=== PATIENT | female | born 1975 | race Hispanic/Latino ===

== ENCOUNTER 2024-08-24 17:26 | Emergency (ER) | payer OTHER ==
[~2024-08-24] VITALS: Ht 172.7 cm; Wt 86.2 kg
[2024-08-24 17:47] VITALS: RESP 18; TEMP 98.4
[2024-08-24 18:23] VITALS: PULSE 79
[2024-08-24] MEDS ORDERED: AMOX TR-K CLV1 EAC2 PO (18:36)
[2024-08-24] MEDS: TETANUS/DIPHTHERIA TOX ADULT 0.5 ML SYR IM ONE (18:51)
[2024-08-24 18:55] VITALS: BP 149/90; PULSE 75; RESP 18; TEMP 98.3; O2SAT 100
== END 2024-08-24 19:00 | disposition home or self-care (01) ==
LOC: ER 18:24
DX: S80.871A Other superficial bite, right lower leg, initial encounter (principal); W54.0XXA Bitten by dog, initial encounter; Y92.89 Other specified places as the place of occurrence of the external cause; E11.9 Type 2 diabetes mellitus without complications
CPT/HCPCS: 90471; 90714; 99283